=== PATIENT | male | born 1990 | race Caucasian/White ===

== ENCOUNTER 2016-11-08 20:47 | Emergency (ER) | payer OTHER ==
[2016-11-08] MEDS ORDERED: IBUPROFEN 600 MG TAB PO STA (21:35)
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
[2016-11-08 22:00] VITALS: RESP 16; TEMP 98.4
[2016-11-08 23:07] VITALS: BP 150/92; PULSE 83
== END 2016-11-08 23:39 | disposition home or self-care (01) ==
LOC: EC 20:47
DX: T40.601A Poisoning by unspecified narcotics, accidental (unintentional), initial encounter (principal); T40.1X1A Poisoning by heroin, accidental (unintentional), initial encounter; F17.200 Nicotine dependence, unspecified, uncomplicated
CPT/HCPCS: 93005; 99284

== ENCOUNTER 2022-05-08 22:28 | Emergency (ER) | payer BC, OTHER ==
[2022-05-08 22:34] VITALS: BP 121/85; PULSE 84; RESP 16; TEMP 97.8
[2022-05-08] MEDS ORDERED: SULFAMETHOX-TMP 800-160MG 1 EACH TAB PO STA (23:26)
[2022-05-08] MEDS ORDERED: CEPHALEXIN 500 MG CAP PO STA (23:26)
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
== END 2022-05-08 23:52 | disposition home or self-care (01) ==
LOC: EC 22:28
DX: L03.012 Cellulitis of left finger (principal); F17.200 Nicotine dependence, unspecified, uncomplicated; F12.90 Cannabis use, unspecified, uncomplicated; Z79.899 Other long term (current) drug therapy
CPT/HCPCS: 99282

== ENCOUNTER 2022-11-21 22:57 | Emergency (ER) | payer BC, OTHER ==
[2022-11-21 23:56] VITALS: RESP 18
[2022-11-22] MEDS ORDERED: LIDOCAINE 2% GLYDO JELLY 11 ML APPL MUCOUS MEM ONE (00:25)
[2022-11-22] MEDS ORDERED: dexAMETHasone 2 MG TAB PO STA (00:27)
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
[2022-11-22 01:37] VITALS: BP 109/70; PULSE 91; TEMP 97.5
== END 2022-11-22 01:27 | disposition home or self-care (01) ==
LOC: EC 22:57
DX: J02.9 Acute pharyngitis, unspecified (principal); F17.200 Nicotine dependence, unspecified, uncomplicated; F12.90 Cannabis use, unspecified, uncomplicated; Z20.822 Contact with and (suspected) exposure to COVID-19
CPT/HCPCS: 87651; 87636; 99283; J8540

== ENCOUNTER 2023-10-14 01:45 | Emergency (ER) | payer BC, OTHER ==
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
[2023-10-14 02:12] VITALS: BP 143/94; PULSE 79; RESP 18; TEMP 97.9
== END 2023-10-14 02:01 | disposition home or self-care (01) ==
LOC: EC 01:45
DX: T16.1XXA Foreign body in right ear, initial encounter (principal)
CPT/HCPCS: 65222; 99282